=== PATIENT | male | born 1990 | race African-American/Black ===

== ENCOUNTER 2016-10-08 11:21 | Emergency (ER) | payer SELFPAY ==
[~2016-10-08] VITALS: Ht 170.2 cm; Wt 65.8 kg
[2016-10-08 11:27] VITALS: BP 137/86
== END 2016-10-08 13:35 | disposition home or self-care (01) ==
LOC: ER 11:21
DX: S20.369A Insect bite (nonvenomous) of unspecified front wall of thorax, initial encounter (principal); W57.XXXA Bitten or stung by nonvenomous insect and other nonvenomous arthropods, initial encounter; Y93.89 Activity, other specified; Y92.89 Other specified places as the place of occurrence of the external cause; Y99.2 Volunteer activity

== ENCOUNTER 2017-08-21 18:22 | Emergency (ER) | payer SELFPAY ==
[~2017-08-21] VITALS: Ht 170.2 cm; Wt 68.0 kg
[2017-08-21 18:25] VITALS: BP 101/80
== END 2017-08-21 21:34 | disposition home or self-care (01) ==
LOC: ER 18:22
DX: K08.89 Other specified disorders of teeth and supporting structures (principal); Z53.21 Procedure and treatment not carried out due to patient leaving prior to being seen by health care provider

== ENCOUNTER 2017-08-23 09:23 | Emergency (ER) | payer SELFPAY ==
[~2017-08-23] VITALS: Ht 170.2 cm; Wt 68.0 kg
[2017-08-23 09:38] VITALS: BP 142/86
[2017-08-23] MEDS ORDERED: CLINDAMYCIN 600 MG/4 ML VL IM ONE (10:45)
[2017-08-23] MEDS ORDERED: cefTRIAXone SOD 1,000 MG VL IM ONE (10:45)
== END 2017-08-23 11:16 | disposition home or self-care (01) ==
LOC: ER 09:23
DX: K02.9 Dental caries, unspecified (principal); B99.9 Unspecified infectious disease
CPT/HCPCS: 96372; 99284; J0696

== ENCOUNTER 2018-10-02 20:33 | Emergency (ER) | payer SELFPAY ==
[~2018-10-02] VITALS: Ht 170.2 cm; Wt 72.6 kg
[2018-10-02 21:13] VITALS: BP 136/85
== END 2018-10-02 23:17 | disposition left against medical advice (07) ==
LOC: ER 20:36
DX: S00.96XA Insect bite (nonvenomous) of unspecified part of head, initial encounter (principal); Z53.21 Procedure and treatment not carried out due to patient leaving prior to being seen by health care provider; W57.XXXA Bitten or stung by nonvenomous insect and other nonvenomous arthropods, initial encounter; Y93.89 Activity, other specified; Y99.8 Other external cause status; Y92.89 Other specified places as the place of occurrence of the external cause

== ENCOUNTER 2021-04-17 12:59 | Emergency (ER) | payer BC, OTHER ==
[~2021-04-17] VITALS: Ht 170.2 cm; Wt 63.5 kg
[2021-04-17 13:10] VITALS: BP 138/92
== END 2021-04-17 15:16 | disposition home or self-care (01) ==
LOC: ER 12:59
DX: S63.266A Dislocation of metacarpophalangeal joint of right little finger, initial encounter (principal); W19.XXXA Unspecified fall, initial encounter; Y93.89 Activity, other specified; Y92.89 Other specified places as the place of occurrence of the external cause; Y99.8 Other external cause status
CPT/HCPCS: 73130

== ENCOUNTER 2021-09-22 20:05 | Emergency (ER) | payer BC ==
[~2021-09-22] VITALS: Ht 170.2 cm; Wt 68.8 kg
[2021-09-22 20:36] VITALS: BP 148/100
== END 2021-09-22 23:13 | disposition left against medical advice (07) ==
LOC: ER 20:05
DX: U07.1 COVID-19 (principal); R53.83 Other fatigue; R05.9 Cough, unspecified; R50.9 Fever, unspecified; M79.10 Myalgia, unspecified site; Z53.21 Procedure and treatment not carried out due to patient leaving prior to being seen by health care provider
CPT/HCPCS: 36415

== ENCOUNTER 2021-11-09 20:42 | Emergency (ER) | payer BC ==
[~2021-11-09] VITALS: Ht 170.2 cm; Wt 68.0 kg
[2021-11-09 20:55] VITALS: BP 137/70
[2021-11-09] MEDS ORDERED: KETOROLAC TROMETH 60MG/2ML VIAL IM ONE (21:15)
[2021-11-09] MEDS ORDERED: SODIUM CHLORIDE 0.9% 1,000 ML IVB ONE (21:15)
[2021-11-09 22:03] LABS: Basophils # (auto) 0.1 10 ^3/uL (0-0.2); Basophils % (auto) 0.8 % (0.0-2.0); Lymphocytes # (auto) 3.4 10 ^3/uL (0.4-5.4)
[2021-11-09 22:05] LABS: Eosinophils # (auto) 0.2 10 ^3/uL (0-0.8); Hematocrit 43.5 % (41.0-53.0); Hemoglobin 14.1 g/dL (13.5-17.5); Lymphocytes % (auto) 30.6 % (10.0-50.0); Mean Corpuscular Hemoglobin 26.3 pg (28.0-32.0); Mean Corpuscular Hgb Conc. 32.4 g/dL (32.0-36.0); Neutrophils # (auto) 6.5 10 ^3/uL (1.6-8.6); Neutrophils % (auto) 57.6 % (37.0-80.0); Nucleated Red Blood Cells % 0.1 %; Red Blood Cells 5.37 10^6/uL (4.5-5.90); Red Cell Distribution Width 13.7 % (11.8-14.3); White Blood Cell 11.2 10^3/uL (4.4-10.8)
[2021-11-09 22:23] LABS: Albumin 3.4 g/dL (3.4-5.0); Calcium 8.2 mg/dL (8.5-10.1); Potassium 3.6 mmol/L (3.5-5.1)
[2021-11-09 22:37] LABS: Bilirubin, Total 0.6 mg/dL (0.2-1.0)
== END 2021-11-10 01:36 | disposition left against medical advice (07) ==
LOC: EDBD 20:42 → ER 20:44
DX: K85.90 Acute pancreatitis without necrosis or infection, unspecified (principal); Z53.29 Procedure and treatment not carried out because of patient's decision for other reasons
CPT/HCPCS: 36415; 74176; 76870; 80053; 83690; 85025

== ENCOUNTER 2022-02-18 04:06 | Emergency (ER) | payer BC ==
[~2022-02-18] VITALS: Ht 170.2 cm; Wt 71.8 kg
[2022-02-18 04:30] VITALS: BP 157/81
== END 2022-02-18 07:29 | disposition left against medical advice (07) ==
LOC: ER 04:06
DX: R51.9 Headache, unspecified (principal); H92.02 Otalgia, left ear; Z53.21 Procedure and treatment not carried out due to patient leaving prior to being seen by health care provider

== ENCOUNTER 2023-04-16 15:56 | Emergency (ER) | payer BC, OTHER ==
[~2023-04-16] VITALS: Ht 170.2 cm; Wt 75.5 kg
[2023-04-16 16:10] VITALS: BP 150/102; PULSE 108; RESP 18; O2SAT 98
== END 2023-04-16 22:17 | disposition left against medical advice (07) ==
LOC: ER 15:56
DX: K40.90 Unilateral inguinal hernia, without obstruction or gangrene, not specified as recurrent (principal)
CPT/HCPCS: 76705

== ENCOUNTER 2023-09-03 07:57 | Emergency (ER) | payer SELFPAY ==
[~2023-09-03] VITALS: Ht 170.2 cm; Wt 76.0 kg
[2023-09-03 08:20] VITALS: BP 140/101; PULSE 95; RESP 16; O2SAT 97
[2023-09-03] MEDS ORDERED: HYDROcodone-ACET 10/325MG TAB PO ONE (09:00)
== END 2023-09-03 09:56 | disposition left against medical advice (07) ==
LOC: ER 07:57
DX: K40.90 Unilateral inguinal hernia, without obstruction or gangrene, not specified as recurrent (principal)

== ENCOUNTER 2024-03-01 20:47 | Emergency (ER) | payer SELFPAY | END 2024-03-01 22:41 | disposition left against medical advice (07) | LOC: ER 20:47 | DX: M79.643 Pain in unspecified hand (principal); Z53.21 Procedure and treatment not carried out due to patient leaving prior to being seen by health care provider ==